=== PATIENT | female | born 1960 | race Caucasian/White ===

== ENCOUNTER 2021-12-08 13:04 | Outpatient (REF) | payer MEDICAID, SELFPAY ==
--- NOTE | 2021-12-08 11:15 | NASALBX_PTH ---
PATIENT: Ramila Ness LOC: [facility] U#:[id number] AGE/SX: 61/F ROOM: RE12/08/[address]: Rizwana Payton : 1960 BED: DIS: 12/08/2021 SPEC #: [id number] RECD: 12/08/21 15:35 STATUS: DON REGhassan #: [id number] ELINA: 12/08/21 11:[address]: Rizwana Payton DEPT: Surgical Specimen RECD BY: Serenity Buck ENTERED: 12/08/21 15:40 SP TYPE: NASALBX OTHR DR: Nel Berman Tissues: 1 - MUCOSA, NOS Procedures: GROSS AND MICRO LEVEL 4 IMMUNOPEROXIDASE STAIN P16 IPEX Comments: [id number]
== END 2021-12-08 13:05 | disposition home or self-care (01) ==
LOC: LBN 13:04
PROVIDERS: PCP Nurse Practitioner Adult Health; Visit Provider Registered Nurse Maternal Newborn
DX: J34.89 Other specified disorders of nose and nasal sinuses (principal)
CPT/HCPCS: 88305; 88342; 88361